=== PATIENT | male | born 1960 | race Caucasian/White ===

== ENCOUNTER 2022-02-01 14:35 | Emergency (ER) | payer SELFPAY ==
[2022-02-01 14:49] VITALS: BP 178/82; PULSE 68; RESP 18; TEMP 37.1; O2SAT 97
--- NOTE | 2022-02-01 14:52 | ED.GENADULT ---
HPI - General Adult General Chief complaint: Unspecified Stated complaint: High Blood Pressure Time Seen by Provider: 02/01/22 14:52 Source: patient Mode of arrival: ambulatory Limitations: no limitations History of Present Illness HPI narrative: 61-year-old male presented for complaint of midsternal chest pressure and left arm/hand tingling intermittently for about 1 week. Also endorses left shoulder pain worse with movement. CP is not reproducible. He states he has been checking his blood pressure at home because he 'wasn't feeling well' and has had elevated readings, today 154/101, he called his PCP today who sent in amlodipine 5 mg which she has not yet started. He denies a history of hypertension. Patient is scheduled to follow-up with PCP next week, and was told if he is concerned he can have it evaluated. He denies associated cough, shortness of breath, nausea, vomiting, diaphoresis, dizziness, fever or chills. Related Data Home Medications Medication Instructions Recorded Confirmed allopurinol 300 mg PO DAILY 02/01/22 02/01/22 Allergies Allergy/AdvReac Type Severity Reaction Status Date / Time No Known Allergies Allergy Verified 02/01/22 14:39 Review of Systems Review of Systems: CONSTITUTIONAL: Denies body aches, fever, chills, or sweats. EYES: Denies visual changes, redness, or discharge. ENT: Denies rhinorrhea, congestion, sore throat, or otalgia. CARDIOVASCULAR: Endorses chest pressure, denies palpitations, or edema. RESPIRATORY: Denies cough or dyspnea. GASTROINTESTINAL: Denies abdominal pain, nausea, vomiting, or diarrhea. GENITOURINARY: Denies dysuria or hematuria. SKIN: Denies rash, itching, or wounds. MUSCULOSKELETAL: Denies back pain, joint pain, or myalgia. NEUROLOGIC: Denies headache, numbness, tingling, or weakness. PSYCH: Denies depression or anxiety. All systems reviewed & are unremarkable except as noted in HPI and below PMFSH Comments At time of signature, I have reviewed and agree with nursing past medical, surgical, social and family history unless otherwise noted. Please see nursing chart for further information. There is no relevant family history pertinent to the presenting complaint Exam Narrative: GENERAL: Well-appearing, no acute distress. HEAD: Normocephalic, atraumatic. EYES: EOMI. No redness or drainage. Conjunctivae normal. ENT: Mucous membranes pink and moist. No rhinorrhea. TMs normal bilaterally. Throat normal. NECK: Normal AROM. Supple. No lymphadenopathy. CHEST: No respiratory distress. Clear to auscultation. HEART: Regular rate and rhythm. No murmur appreciated. Normal peripheral pulses. CP not reproducible. ABDOMEN: Soft, nontender, nondistended, normal active bowel sounds. MUSCULOSKELETAL: No bony tenderness. EXTREMITIES: Normal range of motion. No edema. Left shoulder nontender to palpation. Bilat hand portable pinch riveter strong and equal. SKIN: Warm, dry, no rash. Capillary refill normal. Normal skin turgor. NEURO: No focal deficits. Alert and oriented x3. Gait steady. PSYCH: Normal affect. Course Course Emergency Course: Patient is aware of diagnosis, understands and agrees to treatment plan. Anticipatory guidance given. Patient agrees to follow-up as directed and is aware of reasons to seek care at the emergency department. Portions of this record may have been created with voice recognition software Level of Care: Express Care Visit Vital Signs Vital signs: Vital Signs Temperature 98.7 F 02/01/22 14:49 Pulse Rate 68 02/01/22 14:49 Respiratory Rate 18 02/01/22 14:49 Blood Pressure 178/82 H 02/01/22 14:49 Pulse Oximetry 97 02/01/22 14:49 Temperature 98.7 F 02/01/22 14:49 Pulse Rate 68 02/01/22 14:49 Respiratory Rate 18 02/01/22 14:49 Blood Pressure 178/82 H 02/01/22 14:49 Pulse Oximetry 97 02/01/22 14:49 Medical Decision Making MDM Narrative Medical decision making narrative: Pt with elevated bp readings without hx
--- NOTE | 2022-02-01 15:03 | ECG_ITS ---
Measurements Intervals [place] Rate: 61 P: -2 [place]: 187 QRS: -24 QRSD: 93 T: 45 QT: 389 QTc: 395 Interpretive Statements SINUS RHYTHM WITH OCCASIONAL SUPRAVENTRICULAR PREMATURE COMPLEXES BORDERLINE LEFT AXIS DEVIATION [QRS AXIS < -20] BORDERLINE ECG NO PREVIOUS ECG AVAILABLE FOR COMPARISON Electronically Signed On 02-01-2022 16:44:58 EXPOSURE MACHINE OPERATOR by Cirilo Craven M.D.
== END 2022-02-01 15:37 | disposition left against medical advice (07) ==
PROVIDERS: Emergency Provider Nurse Practitioner Family; PCP Family Medicine
DX: R03.0 Elevated blood-pressure reading, without diagnosis of hypertension (principal); R07.9 Chest pain, unspecified; M10.9 Gout, unspecified
CPT/HCPCS: 93005; 99203; G0463